=== PATIENT | male | born 1960 | race African-American/Black ===

== ENCOUNTER 2016-08-18 00:53 | Emergency (ER) | payer OTHER ==
[~2016-08-18] VITALS: Ht 172.7 cm; Wt 63.5 kg
[~2016-08-18 00:53] MED LIST: ASPI81TA2 PO; LEVE250T2; LEVO500T15 PO
--- NOTE | 2016-08-18 01:10 | NUR ---
to bed 4 bib paramedics c/o L sided facial swelling x 1 1/2 weeks. pt aaox2 no acute distress noted, resp even and unlabored. er md at bedside to eval pt with orders received. will carry out orders.
[2016-08-18 01:40] LABS: BASOPHILS % (AUTO) 0.8 % (0.0-2.0); EOSINOPHILS # (AUTO) 0.1 /CMM (0.0-0.7); EOSINOPHILS % (AUTO) 1.4 % (0.0-6.0); HEMATOCRIT 40 % (39-51); HEMOGLOBIN 13.3 g/dL (13.5-17.5); LYMPHOCYTES % (AUTO) 52.4 % (20.0-44.0); MEAN CORPUSCULAR HEMOGLOBIN 29 PG (26.0-33.0); MEAN CORPUSCULAR HGB CONC 33 g/dl (31.0-36.0); MEAN CORPUSCULAR VOLUME 86 fL (80-96); MONOCYTES # (AUTO) 0.5 /CMM (0.1-1.30); MONOCYTES % (AUTO) 8.3 % (2.0-12.0); NEUTROPHILS # (AUTO) 2.1 /CMM (1.8-8.9); NEUTROPHILS % (AUTO) 37.1 % (43.0-81.0); PLATELET COUNT (AUTO) 196 /CMM (150-450); RDW COEFFICIENT OF VARIATION 13.1 (11.5-15.0); RED BLOOD CELL COUNT(AUTO) 4.64 MIL/uL (4.5-6.0); WHITE BLOOD COUNT (AUTO) 5.7 K/uL (4.3-11.0)
[2016-08-18 01:50] LABS: CALCIUM, SERUM 8.6 mg/dL (8.5-10.1); POTASSIUM 4.4 mmol/L (3.5-5.1)
[2016-08-18] MEDS ORDERED: IOHEXOL-300 100 ML VIAL IV ONE (02:17)
[2016-08-18] MEDS ORDERED: IV NS 0.9% 250 ML IV ONE (02:17)
[2016-08-18] MEDS ORDERED: CT SWABBABLE VALVE TRANS SET 1 EA INFUS.SET MC ONE (02:17)
--- NOTE | 2016-08-18 03:13 | NUR ---
ct result received. er aware.
--- NOTE | 2016-08-18 03:14 | NUR ---
jamee torres at [facility] for I&D.
--- NOTE | 2016-08-18 03:29 | NUR ---
I&D done by jamee torres. pt tolerated procedure well.
--- NOTE | 2016-08-18 03:38 | NUR ---
IV removed. Catheter intact and site benign. Pressure and 4x4 applied to site. No bleeding noted. Patient discharged to home in stable condition. Written and verbal after care instructions given. Patient verbalizes understanding of instruction. ambulatory with a steady gait noted. pt femily members at bedside to take pt home.
[2016-08-18 03:50] VITALS: BP 146/75
== END 2016-08-18 03:50 | disposition home or self-care (01) ==
LOC: ER 00:55
DX: M27.2 Inflammatory conditions of jaws (principal); B19.20 Unspecified viral hepatitis C without hepatic coma; F03.90 Unspecified dementia, unspecified severity, without behavioral disturbance, psychotic disturbance, mood disturbance, and anxiety; J44.9 Chronic obstructive pulmonary disease, unspecified; Z79.82 Long term (current) use of aspirin; Z86.73 Personal history of transient ischemic attack (TIA), and cerebral infarction without residual deficits; Z88.8 Allergy status to other drugs, medicaments and biological substances; Z88.1 Allergy status to other antibiotic agents
CPT/HCPCS: 10060; 36415; 70487; 80048; 85025; 99285; A4606; A6253; A6402 ×2; A6407; J7050; Q9967; Z7610

== ENCOUNTER 2016-08-21 03:53 | Emergency (ER) | payer OTHER ==
[~2016-08-21] VITALS: Ht 172.7 cm; Wt 63.5 kg
[2016-08-21 03:59] VITALS: BP 166/81
== END 2016-08-21 04:31 | disposition home or self-care (01) ==
LOC: ER 03:53
DX: L72.3 Sebaceous cyst (principal); B19.20 Unspecified viral hepatitis C without hepatic coma; F02.80 Dementia in other diseases classified elsewhere, unspecified severity, without behavioral disturbance, psychotic disturbance, mood disturbance, and anxiety; J44.9 Chronic obstructive pulmonary disease, unspecified; G40.909 Epilepsy, unspecified, not intractable, without status epilepticus; Z79.82 Long term (current) use of aspirin; Z86.73 Personal history of transient ischemic attack (TIA), and cerebral infarction without residual deficits; Z88.8 Allergy status to other drugs, medicaments and biological substances
CPT/HCPCS: 99283; A4606; A6402; A6407; Z7610

== ENCOUNTER 2016-08-25 00:57 | Emergency (ER) | payer OTHER ==
[~2016-08-25] VITALS: Ht 162.6 cm; Wt 58.1 kg
[2016-08-25 01:00] VITALS: BP 154/83
== END 2016-08-25 01:36 | disposition home or self-care (01) ==
LOC: ER 00:57
DX: Z48.01 Encounter for change or removal of surgical wound dressing (principal); B19.20 Unspecified viral hepatitis C without hepatic coma; F03.90 Unspecified dementia, unspecified severity, without behavioral disturbance, psychotic disturbance, mood disturbance, and anxiety; J44.9 Chronic obstructive pulmonary disease, unspecified; Z79.82 Long term (current) use of aspirin; Z86.73 Personal history of transient ischemic attack (TIA), and cerebral infarction without residual deficits; Z98.890 Other specified postprocedural states
CPT/HCPCS: A4606; A6407; Z7610

== ENCOUNTER 2016-09-09 18:59 | Emergency (ER) | payer OTHER ==
[~2016-09-09] VITALS: Ht 162.6 cm; Wt 57.2 kg
[2016-09-09 19:04] VITALS: BP 161/81
== END 2016-09-09 19:59 | disposition home or self-care (01) ==
LOC: ER 19:02
DX: L02.01 Cutaneous abscess of face (principal); B19.20 Unspecified viral hepatitis C without hepatic coma; F03.90 Unspecified dementia, unspecified severity, without behavioral disturbance, psychotic disturbance, mood disturbance, and anxiety; J44.9 Chronic obstructive pulmonary disease, unspecified; Z79.82 Long term (current) use of aspirin; Z86.73 Personal history of transient ischemic attack (TIA), and cerebral infarction without residual deficits; Z88.8 Allergy status to other drugs, medicaments and biological substances; Z88.1 Allergy status to other antibiotic agents
CPT/HCPCS: A4606; A6402; Z7610